=== PATIENT | male | born 1975 | race Caucasian/White ===

== ENCOUNTER 2019-06-14 08:47 | Inpatient (IN) | payer MEDICAID, OTHER ==
[~2019-06-14 08:47] MED LIST: Bupivacaine 0.5% 50 ML MDV ONE; Lidocaine 1% with EPINEPHrine 1:100,000 50 ML MDV ONE; Meropenem 500 MG SDV ONE
[2019-06-14] MEDS ORDERED: Celecoxib 200 MG Cap PO ONE (09:30)
[2019-06-14] MEDS ORDERED: Acetaminophen 500 MG Tab PO ONE (09:30)
[2019-06-14] MEDS ORDERED: Dextrose 5%-Lactated Ringers 1,000 ML IV SCH (09:30)
[2019-06-14] MEDS ORDERED: Ondansetron 4 MG/2 ML SDV ONE (09:49)
[2019-06-14] MEDS ORDERED: Propofol 200 MG/20 ML SDV ONE (09:49)
[2019-06-14] MEDS ORDERED: Succinylcholine 200 MG/10 ML MDV ONE (09:49)
[2019-06-14] MEDS ORDERED: Neostigmine Methylsulfate 1 MG/ML 5 ML Syringe ONE (09:49)
[2019-06-14] MEDS ORDERED: fentaNYL 250 MCG/5 ML SDV ONE (09:49)
[2019-06-14] MEDS ORDERED: Dexamethasone 4 MG/ML SDV ONE (09:49)
[2019-06-14] MEDS ORDERED: Rocuronium 50 MG/5 ML Vial ONE ×2 (09:49→11:15)
[2019-06-14] MEDS ORDERED: Glycopyrrolate 0.2 MG/ML 5 ML MDV ONE (09:49)
[2019-06-14] MEDS ORDERED: Lactated Ringers 1,000 ML ONE (09:52)
[2019-06-14] MEDS ORDERED: Magnesium Sulfate 3.3 GM in Sodium Chloride 0.9% 100 ML IV SCH (10:15)
[2019-06-14] MEDS ORDERED: Ketamine 500 MG/5 ML MDV IV SCH (10:15)
[2019-06-14] MEDS ORDERED: Ketamine 50 MG in Sodium Chloride 0.9% 49.5 ML IV SCH (10:15)
[2019-06-14] MEDS ORDERED: Ropivacaine 46 ML, dexAMETHasone 8 MG, EPINEPHrine 0.4 MG, Sodium Chloride 0.9% 31.6 ML NERVRT SCH ×4 (10:15)
[2019-06-14] MEDS: Magnesium Sulfate 5.3 GM in Sodium Chloride 0.9% 250 ML IV ONE ×2 (10:33→13:58)
[2019-06-14] MEDS: cefOXitin 2 GM in Sodium Chloride 0.9% 50 ML IV ONE ×2 (10:33→21:02)
[2019-06-14] MEDS ORDERED: fentaNYL 100 MCG/2 ML SDV ONE (11:37)
[2019-06-14] MEDS ORDERED: hydrOXYzine HCL 100 MG/2 ML SDV IM ONE (12:12)
[2019-06-14] MEDS ORDERED: Labetalol 20 MG/4 ML Syringe IVPUSH PRN (13:21)
[2019-06-14] MEDS ORDERED: diphenhydrAMINE 50 MG/ML SDV IVPUSH PRN (13:21)
[2019-06-14] MEDS ORDERED: Calcium Gluconate 10% 1 GM/10 ML SDV IVPUSH PRN (13:21)
[2019-06-14] MEDS ORDERED: Ondansetron 4 MG/2 ML SDV IVPUSH PRN (13:21)
[2019-06-14] MEDS ORDERED: Metoclopramide 10 MG/2 ML SDV IVPUSH PRN (13:21)
[2019-06-14] MEDS ORDERED: Acetaminophen 500 MG Tab PO PRN (13:21)
[2019-06-14] MEDS ORDERED: HYDROmorphone 1 MG/ML Syringe IV PRN (13:21)
[2019-06-14] MEDS: HYDROmorphone 0.5 MG/0.5 ML Syringe IVPUSH PRN ×2 (13:36→18:29)
[2019-06-14] MEDS ORDERED: Scopolamine 1.5 MG Transdermal Patch TOP SCH (14:00)
[2019-06-14] MEDS: Gabapentin 250 MG/5 ML Solution ML 470 ML Bottle PO SCH ×2 (15:54→21:02)
[2019-06-14] MEDS: Sodium Ferric Gluconate Cmplex 250 MG in Sodium Chloride 0.9% 100 ML IV SCH (15:56)
[2019-06-14] MEDS ORDERED: MVI, Adult with Vitamin K 10 ML, Thiamine 200 MG, Chromium/Copper/Mang/Selen/Zn 1 ML in... IV SCH ×4 (16:00)
[2019-06-14] MEDS: cefOXitin 2 GM in Sodium Chloride 0.9% 50 ML IV SCH ×2 (16:00→22:33)
[2019-06-14] MEDS ORDERED: Pantoprazole 40 MG Vial IVPUSH SCH (16:00)
[2019-06-14] MEDS: Heparin Sodium 5,000 Units/ML Vial SUBCUT SCH (16:10)
[2019-06-14] MEDS: Acetaminophen 500 MG Tab PO SCH (16:11)
[2019-06-14] MEDS: oxyCODONE 5 MG Tab PO PRN (21:02)
[2019-06-14] MEDS: Dextrose 5%-Lactated Ringers 1,000 ML IV SCH (22:23)
[2019-06-15] MEDS: Acetaminophen 500 MG Tab PO SCH ×3 (00:07→16:08)
[2019-06-15] MEDS ORDERED: Iopamidol 612 MG/ML 50 ML SDV PO ONE (03:44)
[2019-06-15] MEDS: cefOXitin 2 GM in Sodium Chloride 0.9% 50 ML IV SCH (03:54)
[2019-06-15] MEDS: Heparin Sodium 5,000 Units/ML Vial SUBCUT SCH ×2 (03:55→16:08)
[2019-06-15] MEDS: oxyCODONE 5 MG Tab PO PRN ×3 (04:02→19:07)
[2019-06-15] MEDS: Dextrose 5%-Lactated Ringers 1,000 ML IV SCH (04:40)
[2019-06-15] MEDS ORDERED: Ondansetron 4 MG Tab.DIS PO PRN (07:50)
[2019-06-15] MEDS ORDERED: Dextrose 5%-Lactated Ringers 1,000 ML IV SCH (08:00)
[2019-06-15] MEDS: Cyclobenzaprine 10 MG Tab PO PRN ×2 (08:53→21:16)
[2019-06-15] MEDS: Gabapentin 250 MG/5 ML Solution ML 470 ML Bottle PO SCH ×3 (08:53→21:18)
[2019-06-15] MEDS: Celecoxib 200 MG Cap PO SCH ×2 (08:54→21:10)
[2019-06-15] MEDS: Docusate Sodium 100 MG Cap PO SCH ×2 (08:54→21:10)
[2019-06-15] MEDS: Bisacodyl 5 MG Tab PO SCH ×2 (08:54→21:10)
[2019-06-15] MEDS: SCOPOLAMINE PATCH CHECK TOP SCH (08:55)
--- NOTE | 2019-06-15 09:20 | CR ---
[facility] HISTORY: Postbariatric surgery FINDINGS: Patient swallowed water-soluble contrast. Upright views of the abdomen show no evidence of extravasation or obstruction. IMPRESSION: Status post bariatric surgery No extravasation or obstruction seen
--- NOTE | 2019-06-15 11:42 | PN ---
DATE OF SERVICE: 06/15/2019 SUBJECTIVE: Edward is postoperative day #1. Upper GI was normal this morning. His pain is well controlled. Remainder of review of systems negative for any pertinent positives and negatives. OBJECTIVE: GENERAL: Edward Gabriel is a 44-year-old male. He is alert and orientated. VITAL SIGNS: TPR is 97.9, 61, 16. Blood pressure 104/68. HEENT: Negative. NECK: Supple. HEART: Regular rate and rhythm. LUNGS: Clear. ABDOMEN: Dressings dry and intact. Abdominal binder is on. EXTREMITIES: Without peripheral edema. ASSESSMENT: 1. Exploratory laparotomy with lysis of adhesions. a. Small bowel resection. b. Separate enterostomy to restore Herb-en-Y small bowel anatomy. c. Small bowel strictureplasty. d. Reduction of small bowel volvulus and closure of right internal hernia. e. Placement of Interceed mesh for focal small bowel volvulus and narrowing of the Herb limb involving the jejunojejunostomy and focal stricture at the biliary pancreatic limb. 2. Date of surgery: 06/14/2019. Surgeon: Darshan Olmstead MD. PLAN: 1. Step 2 gastric bypass diet with cereal. 2. Saline lock IV if oral intake greater than 500 with a total of 1000 for 24 hours. 3. Discontinue IV Dilaudid. 4. Dulcolax 10 mg pills p.o. b.i.d. until the patient has a bowel movement. 5. Colace 100 mg b.i.d. 6. Good pulmonary toilet. 7. We will evaluate p.r.n. or in a.m. Joselyn Alexander PA-C /[id number]
[2019-06-15] MEDS: Sodium Ferric Gluconate Cmplex 250 MG in Sodium Chloride 0.9% 100 ML IV SCH (14:11)
[2019-06-15] MEDS ORDERED: MVI, Adult with Vitamin K 10 ML, Thiamine 200 MG, Chromium/Copper/Mang/Selen/Zn 1 ML in... IV SCH ×4 (16:00)
[2019-06-15] MEDS: hydrOXYzine HCL 100 MG/2 ML SDV IM PRN ×2 (16:09→21:18)
[2019-06-15] MEDS ORDERED: Pantoprazole 40 MG Delayed-Release Granules 1 Packet PO SCH (16:30)
[2019-06-15] MEDS ORDERED: Melatonin 3 MG Tab PO SCH (22:00)
[2019-06-16] MEDS ORDERED: Melatonin 3 MG Tab PO SCH (00:22)
[2019-06-16] MEDS: Acetaminophen 500 MG Tab PO SCH ×2 (00:34→08:12)
[2019-06-16] MEDS: Heparin Sodium 5,000 Units/ML Vial SUBCUT SCH (04:23)
[2019-06-16] MEDS ORDERED: Magnesium Hydroxide 400 MG/5 ML Susp 30 ML Cup PO PRN (07:44)
[2019-06-16] MEDS: Docusate Sodium 100 MG Cap PO SCH (08:12)
[2019-06-16] MEDS: Bisacodyl 5 MG Tab PO SCH (08:12)
[2019-06-16] MEDS: Celecoxib 200 MG Cap PO SCH (08:13)
[2019-06-16] MEDS: Gabapentin 250 MG/5 ML Solution ML 470 ML Bottle PO SCH (08:13)
[2019-06-16] MEDS ORDERED: Cyanocobalamin (Vitamin B12) 1,000 MCG/ML SDV IM ONE (09:00)
[2019-06-16] MEDS: SCOPOLAMINE PATCH CHECK TOP SCH (09:33)
[2019-06-16] MEDS: oxyCODONE 5 MG Tab PO PRN (14:35)
--- NOTE | 2019-06-16 15:18 | DISCH ---
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 DISCHARGE DIAGNOSES: Exploratory laparotomy with lysis of adhesions: 1. Small bowel resection. 2. Separate enterotomy to restore Herb-en-Y small bowel anatomy. 3. Small bowel stricturoplasty. 4. Reduction of small bowel volvulus and closure of right internal hernia. 5. Placement of Interceed mesh for focal small bowel volvulus and narrowing of the Herb limb involving the jejunojejunostomy and focal stricture at the biliopancreatic limb. Date of surgery: 06/14/2019. Surgeon: Darshan Olmstead MD. HISTORY: Edward Gabriel is a 44-year-old male who is status post gastric bypass surgery with a partial small bowel obstruction. After preoperative evaluation and discussion of possible risks and possible complications, he wished to proceed with surgical procedure. HOSPITAL COURSE: Edward had his surgery on 06/14/2019. He had no operative complications. He did receive 1 dose of iron infusion for a low ferritin. On postoperative day #1, his pain was controlled, IV was saline locked after he received his 2nd dose of iron, started on bowel stimulation, and oral intake was adequate at 4440, urine output 5240. He was discharged to home on 06/16/2019, and pain was controlled, he received dietary instruction, and his activity was good. REVIEW OF SYSTEMS: Remainder of review of systems negative for any pertinent positives and negatives. OBJECTIVE: GENERAL: Edward Gabriel is a 44-year-old male. VITAL SIGNS: Height is 5 feet 7 inches, weight is 151 pounds, BMI is 23. TPR is 100.2, 86, 18, blood pressure 120/56. HEENT: Negative. NECK: Supple. HEART: Regular rate and rhythm. LUNGS: Clear. ABDOMEN: Aquacel dressing is on. It will be removed and then it will be replaced today. His staci intact. EXTREMITIES: Without peripheral edema. DISPOSITION: Discharged to home. CONDITION: Stable and improving. FOLLOWUP: Appointment on 06/28/2019 with Joselyn Alexander PA-C, at [place], [place] at 9:30 a.m. He is to have his iron panel checked in 2 months because he received an iron infusion in the hospital. NEW PRESCRIPTIONS: 1. Tylenol 1000 mg oral every 8 hours p.r.n. for pain. 2. Celebrex 200 mg oral b.i.d. #28. 3. Colace 100 mg oral b.i.d. #60. 4. Milk of mag 60 mL, two were sent home with the patient to take 1 daily p.r.n. 5. Oxycodone 5 mg q.6 hours p.r.n. pain, #28. 6. He is to resume his home medications and supplements. DIET: Step 3 gastric bypass diet. ACTIVITY: No lifting greater than 10 pounds for 4 weeks. Other activity: Walk at least 6 times inside your home. Driving: Do not drive for 1 week and while on narcotic pain medicine. Shower/bathing: May shower. DISCHARGE INSTRUCTIONS: Notify provider if any fever, increased pain, nausea, vomiting. Keep site clean and dry. Wear abdominal binder for 6 weeks to avoid getting a hernia and use incentive spirometer 10 times every hour while awake for 1 week.
--- NOTE | 2019-06-21 09:21 | OR ---
DATE OF PROCEDURE: 06/14/2019 SURGEON: Darshan Olmstead MD PREOPERATIVE DIAGNOSIS: Partial small bowel obstruction. POSTOPERATIVE DIAGNOSES: 1. Partial small bowel obstruction associated with focal small bowel volvulus and narrowing of Herb limb as it entered the jejunojejunostomy. 2. Focal stricture of biliopancreatic limb. OPERATIVE PROCEDURES: Exploratory laparotomy with lysis of adhesions and: 1. Small bowel resection (66351). 2. Separate enteroenterostomy for caodaism of small bowel Herb-en-Y anatomy (47321). 3. Small bowel stricturoplasty (98393). 4. Reduction of small bowel volvulus and closure of internal hernia (50046). 5. Placement of Interceed mesh to displace pelvic and abdominal wall from underlying viscera to reduce of postoperative adhesion formation (92552). ANESTHESIA: General. INDICATIONS FOR PROCEDURE: The patient presents with a picture of partial small bowel obstruction following previous Herb-en-Y gastric bypass. Plan is to proceed with a limited laparotomy with reduction of volvulus, lysis of adhesions, and small bowel resection as indicated. Potential risks of procedure including bleeding, infection, injury to underlying viscera, leaks from any GI tract closures that might be required, possible recurrence of the problem over time, as well as remote possibility of cardiopulmonary, septic, or hemorrhagic complications leading to were all discussed, and the patient wishes to proceed. DETAILS OF PROCEDURE: The patient was taken to the operating room, and after general endotracheal anesthesia was induced, a Schulte catheter was inserted and the abdomen prepped and draped. A midline incision was made from the umbilicus, roughly a handsbreadth toward the xiphoid, carried down through the full-thickness abdominal wall. Upon entering the peritoneal cavity, the patient is noted to have some scattered adhesions between the omentum, small bowel, and anterior abdominal wall, which were taken down. The patient was noted to have an area of small bowel volvulus involving the area of enteroenterostomy prolapsing underneath the Herb limb. This area was reduced. That mesenteric defect between the Herb limb and the underlying omentum and transverse colon was then closed with a 2-0 silk stitch. Examination of the small bowel at this point showed 2 additional problems. One was narrowing related to chronic distortion of the Herb limb at the point where the Herb limb entered the jejunojejunostomy. This appeared to be somewhat of a fixed stricture and likely problematic over time. The patient also had, likely also related to increasing of the biliopancreatic limb within the area of volvulus, an edematous and narrowed area in the mid biliopancreatic limb, and this was subsequently treated with a stricturoplasty. At this point, the 3 components of enteroenterostomy were divided with SAMIR staplers, as was the underlying mesentery, and that segment of small bowel delivered from the field. GI tract continuity was initially reconstructed with a [id number] enteroenterostomy between the end of the biliopancreatic limb and the beginning of what had been the common limb with a [id number] internal firing of the Endo-SAMIR 60 mm stapler. The common opening was closed transversely with the same stapler and the angles of anastomosis and mesenteric defect approximated with some 3-0 Vicryl stitch. GI tract continuity was then accomplished with a separate enteroenterostomy between the Herb limb and the small bowel roughly 20 cm distal to the above anastomosis. This was accomplished with the same sequence of staplers, and the angles of anastomosis were reinforced with some 3-0 Vicryl stitch. In this case, the mesenteric defect closed with a 2-0 silk stitch to provide some permanency to that mesenteric closure. The area of the stricture in the biliopancreatic limb was treated with flipping the bowel over on itself at the point of the stricture, making this enterotomy and firing a 60 mm SAMIR stapler, connecting the two [id number] segments of small bowel. The common opening was then closed transversely with a purple load. Angles of anastomosis were reinforced with some 3-0 Vicryl stitch. There was no mesenteric defect in this case to close. At this point, no further problems were noted. The abdomen was irrigated with meropenem-containing saline solution, so as to limit the subsequent adhesion formation to the pelvic and abdominal wall and the underlying viscera. Interceed mesh was placed across those surfaces, and the midline fascia was then approximated with #2 Vicryl stitch. Subcutaneous tissue was closed with some 3-0 and 4-0 Vicryl stitch deep and staci for the skin. Prior to closure, bilateral transversus abdominis plane blocks were placed, and the fascia was also anesthetized with 0.5% Marcaine and 1% lidocaine. The patient was taken to the recovery room in satisfactory condition. There were no evident complications. Darshan Olmstead MD /[id number]
== END 2019-06-16 15:00 | disposition home or self-care (01) | DRG 326 ==
LOC: JP.MS 08:47 → UNDOADMIN 08:47 → JP.SDS 08:47 → JP.SDSSCHI 08:47 → EDSTATUS 09:45 → JP.MS 12:05
PROVIDERS: ADMIT Surgery; ATTEND Surgery
PROC: 0D160ZA Bypass Stomach to Jejunum, Open Approach (ICD-10-PCS; principal; 2019-06-14)
PROC: 0DS80ZZ Reposition Small Intestine, Open Approach (ICD-10-PCS; 2019-06-14)
PROC: 0DB80ZZ Excision of Small Intestine, Open Approach (ICD-10-PCS; 2019-06-14)
PROC: 0DQ80ZZ Repair Small Intestine, Open Approach (ICD-10-PCS; 2019-06-14)
PROC: 3E0M05Z Introduction of Adhesion Barrier into Peritoneal Cavity, Open Approach (ICD-10-PCS; 2019-06-14)
DX: K94.19 Other complications of enterostomy (principal); K56.2 Volvulus; K90.9 Intestinal malabsorption, unspecified; Y83.8 Other surgical procedures as the cause of abnormal reaction of the patient, or of later complication, without mention of misadventure at the time of the procedure; K66.0 Peritoneal adhesions (postprocedural) (postinfection); E55.9 Vitamin D deficiency, unspecified; E53.8 Deficiency of other specified B group vitamins; E78.2 Mixed hyperlipidemia; F10.20 Alcohol dependence, uncomplicated; K70.10 Alcoholic hepatitis without ascites; K70.0 Alcoholic fatty liver; D50.9 Iron deficiency anemia, unspecified; M06.9 Rheumatoid arthritis, unspecified; Z79.899 Other long term (current) drug therapy; Z98.84 Bariatric surgery status; I10 Essential (primary) hypertension
CPT/HCPCS: 74240; 74240-26; 88307; 93005; 94660; A9270-GY; C9113; J0171; J0330; J0694; J1100; J1170; J1644; J2185; J2405; J2704; J2710; J2765; J2795; J2916; J3010; J3410; J3411; J3420; J3475; J3490; J7050; J7120; J7121; Q9967